=== PATIENT | male | born 1950 | race Caucasian/White ===

== ENCOUNTER 2024-02-24 07:32 | Emergency (ER) | payer MEDICARE, OTHER, SELFPAY ==
[2024-02-24] VITALS (7 sets, daily range): BP systolic 98–134; BP diastolic 67–97
--- NOTE | 2024-02-24 08:15 | ED.GENMED ---
History of Present Illness
General
Chief Complaint: Abdominal Pain
Source: patient and spouse
Exam Limitations: none
Time Seen by Provider: 02/24/24 07:49
Nursing documentation reviewed up to this point in time: agreed with
Travel History
Have you had any contact with someone who has COVID-19?: No
Do you have any symptoms of coronavirus? Fever > 100 degrees, chills, cough, shortness of breath, sore throat, loss of taste or smell, muscle aches, or headache?: No
History of Present Illness
History of Present Illness:
73-year-old male presents with abdominal symptoms onset a few days ago sharp pain in his right flank for a few seconds after starting his car
Next day had some abdominal bloating cramping profuse diarrhea symptoms improve since early this morning he has had pain in his mid anterior abdomen into his back, did have some loose stools no fever no chest pain, possibly had some black stools, no
fevers appetites been okay has noticed some abdominal bloating like he may be gaining weight although he does not believe he is gaining weight has had upper and lower endoscopies, no prior abdominal surgeries
Past History
Past History
ED Past Medical History: Negative CVA, HTN or NIDDM
ED Past Surgical History: Orthopedic; Negative Appendectomy, Cardiac or Cholecystectomy
Social History
Tobacco: Non-smoker
Alcohol: Occasional
Drug: None
Personal:
Living: with family
Employment: Employed
Family History
Family History: Other (Dad with heart failure)
Phy Exam
Physical Exam
Physical Exam:
Physical Exam
General: no apparent distress, not acutely ill
Neck: No jaw
Heart: s1/s2 regular rate and rhythm, no murmur. equal radial pulses.
Lungs: no acute respiratory distress. clear bilaterally
Abdomen: Tender in the epigastrium right upper quadrant
Neuro: alert and oriented. no focal neurological deficits
Skin: no rash
Psychiatric: well kept. interactive and cooperative
Extremities: no edema.
Course
Orders/Labs/Results
Orders:
Orders
02/24/24 08:01
Iohexol [Omnipaque] See Protocol PO NOW STA
02/24/24 08:02
Electrocardiogram (*1) Urgent
Reason for Study: Abdominal Pain
EKG- Treatment ONCE
0.9% Sodium Chloride 1000 ml [Nss] 1,000 ml IV BOLUS
Morphine Sulfate 4 mg IV NOW STA
Ondansetron Injectable [Zofran] 4 mg IV NOW STA
US Abdomen Complete/Upper Urgent
Comment:
Reason For Exam: pain
02/24/24 08:07
Complete Blood Count/With Diff Urgent
Comprehensive Metabolic Panel Urgent
Lipase Urgent
Troponin I Urgent
02/24/24 08:26
Stool Culture Urgent
PAL Source: Feces/Stool
Specimen Description:
02/24/24 10:30
Urinalysis Reflex To Culture Urgent
Date Specimen was Collected: 02/24/24
Time Specimen was Collected: 10:18
Abnormal Lab Results
02/24/24 02/24/24
08:07 10:30
MCH 31.7 H pg
(27.0-31.0)
Absolute Neuts (auto) 9.0 H 10^3/uL
(1.4-6.5)
Absolute Lymphs (auto) 0.8 L 10^3/uL
(1.2-3.4)
Absolute Monos (auto) 0.8 H 10^3/uL
(0.1-0.6)
Neutrophils % 83.3 H %
(42.2-75.2)
Lymphocytes % 7.7 L %
(20.5-51.1)
Chloride 109 H mmol/L
(98-107)
BUN 24 H mg/dl
(9-20)
Glucose 108 H mg/dl
(70-99)
Urine Ketones Trace A
(Negative)
02/24/24 08:07
02/24/24 08:07
Vital Signs
Initial and Last Documented VS:
Initial Vital Signs
Temp Pulse Resp BP Pulse Ox
98.0 F 76 16 128/86 95
02/24/24 07:41 02/24/24 07:41 02/24/24 07:41 02/24/24 07:41 02/24/24 07:41
Last Documented Vital Signs
Temp Pulse Resp BP Pulse Ox
98.2 F 78 15 127/97 97
02/24/24 10:24 02/24/24 10:30 02/24/24 10:30 02/24/24 10:24 02/24/24 10:30
MDM/Problems Addressed
Differential Diagnosis Includes:
Enteritis biliary colic infectious diarrhea pancreatitis
MDM/Problems Addressed:
Abdominal pain
*Radiology
Radiology exam reviewed: preliminary read by ED provider
*Pulse Oximetry
Patient hypoxic: no
*EKG
Interpreted by ED Provider?: Yes
Interpretation: abnormal
Comparison EKG: no comparison EKG present
Heart Rate: 78
Rate: normal
Rhythm: sinus
Ischemia: non-specific ST changes
*Winch Stripper Interpretation
Rate: normal
Interpretation: normal
Heart Rate: 78
Rhythm: sinus
*Critical Care Note
Total Time (30-74mins, 75-104mins- exclusive of procedures): Not Applicable
Update Note
Update Note:
10 AM ultrasound noted labs noted CT pending
12:30 PM patient resting comfortably abdomen soft and nontender labs and CT noted ultrasound noted
ED Attending Note
-
Portions of this chart may have been created with voice recognition software.� Occasional wrong word or��sound alike� substitutions may have occurred due to the inherent limitations of voice recognition software.
Discharge Plan
Departure
Patient Disposition: Home (Routine Discharge)
Date of Disposition: 02/24/24
Time of Disposition: 12:27
Patient with high blood pressure during this ER visit?: No
Condition: Good
Discharge Problem:
Abdominal pain
Instructions: Harmon Diet, Abdominal Pain
Prescriptions:
New
dicyclomine 20 mg tablet
20 mg PO TID PRN (Reason: abdominal pain) Qty: 14 0RF
ondansetron 4 mg tablet,disintegrating
4 mg PO Q8H PRN (Reason: nausea and vomiting) Qty: 14 0RF
pantoprazole [Protonix] 20 mg tablet,delayed release (DR/EC)
20 mg PO DAILY Qty: 20 0RF
loperamide [Imodium A-D] 2 mg capsule
2 mg PO Q6H PRN (Reason: loose stool) Qty: 20 0RF
No Action
multivitamin with folic acid [Tab-A-Adolfo] 1 TABLET tablet
1 tab PO DAILY
Referrals:
Juliette Marie CRNP [Family Provider] -
Interventions
Interventions:
*General Assessment Last Done: 02/24/24 07:41
*ED COVID-19 Vaccine History Last Done: 02/24/24 07:41
Discharge Date and Time
Print Language: JAPANESE
[2024-02-24 08:20] LABS: % Basophils 0.2 % (0-2); % Eosinophils 1.3 % (0-6); % Immature Granulocytes 0.3 % (0-0.5); % Lymphocytes 7.7 % (20.5-51.1); % Monocytes 7.2 % (1.7-9.3); % Neutrophils 83.3 % (42.2-75.2); Absolute Eosinophils 0.1 10^3/uL (0-0.7); Absolute Lymphocytes 0.8 10^3/uL (1.2-3.4); Absolute Monocytes 0.8 10^3/uL (0.1-0.6); Hematocrit 48.3 % (39.0-52.0); Hemoglobin 16.8 g/dL (13.0-18.0); Mean Corp Hgb Conc. 34.8 g/dL (33.0-37.0); Mean Corpuscular Hgb 31.7 pg (27.0-31.0); Mean Corpuscular Volume 91.1 fL (80.0-94.0); Mean Platelet Volume 9.7 fL (7.4-10.4); Nucleated Red Blood Cells % 0 % (-); Platelet Count 173 10^3/uL (130-400); Red Cell Dist. Width 13.2 % (11.5-14.5); White Blood Cell Count 10.8 10^3/uL (4.8-10.8)
[2024-02-24] MEDS: NSS 1000 IV (08:34)
[2024-02-24 08:35] LABS: ALT (SGPT) 24 U/L (0-50); AST (SGOT) 24 U/L (17-59); Albumin 4.2 g/dl (3.5-5.0); Alkaline Phosphatase 93 U/L (38-126); Blood Urea Nitrogen 24 mg/dl (9-20); Carbon Dioxide 23 mmol/L (22-30); Chloride 109 mmol/L (98-107); Glucose 108 mg/dl (70-99); Lipase 166 U/L (23-300); Potassium 4.1 mmol/L (3.5-5.1); Sodium 137 mmol/L (135-145); Total Bilirubin 0.7 mg/dl (0.2-1.3); Total Protein 6.8 g/dl (6.3-8.2); eGFR > 60.00
[2024-02-24] MEDS: ZOFRAN 4 MG IV (08:35)
[2024-02-24] MEDS: MORPHINE SULFATE 4 MG IV (08:36)
[2024-02-24] MEDS: OMNIPAQUE 50 ML PO (08:36)
[2024-02-24 08:46] LABS: Troponin I < 0.012 ng/ml
[2024-02-24 10:43] LABS: Urine Albumin Negative (Neg - Trace); Urine Bilirubin Negative (Negative); Urine Character Clear (Clear); Urine Color Yellow; Urine Glucose Negative (Negative); Urine Ketone Trace (Negative); Urine Leukocyte Negative (Negative); Urine Nitrite Negative (Negative); Urine Occult Blood Negative (Negative); Urine Specific Gravity 1.025 (<1.030); Urine Urobilinogen Negative (Neg - 1+)
== END 2024-02-24 13:00 | disposition home or self-care (01) ==
LOC: EMR 07:32
PROVIDERS: EMERGENCY PHYSICIAN Emergency Medicine; FAMILY PHYSICIAN Nurse Practitioner
DX: R10.9 Unspecified abdominal pain (principal); M54.9 Dorsalgia, unspecified; R19.7 Diarrhea, unspecified; R14.0 Abdominal distension (gaseous)
CPT/HCPCS: 99285; 96375; 96361 ×2; 96374; 74178; 76700; 80053; 81003; 83690; 84484; 85025; 93005; Q9967

== ENCOUNTER → 2025-04-14 15:12 | Outpatient (REF) | payer MEDICARE, OTHER, SELFPAY | LOC: HWRAD 15:12 | DX: R07.81 Pleurodynia (principal) | CPT/HCPCS: 71101 ==

== ENCOUNTER → 2025-08-28 13:48 | Outpatient (REF) | payer MEDICARE, OTHER, SELFPAY | LOC: HWRCS 13:48 | PROVIDERS: ATTENDING PHYSICIAN Internal Medicine | DX: I71.21 Aneurysm of the ascending aorta, without rupture (principal); E66.811 Obesity, class 1; I10 Essential (primary) hypertension; E78.2 Mixed hyperlipidemia | CPT/HCPCS: 93306 ==